=== PATIENT | female | born 1975 | race Two or more races ===

== ENCOUNTER 2024-05-31 08:43 | Inpatient (IN) | payer OTHER ==
[~2024-05-31] VITALS: Ht 167.6 cm; Wt 71.2 kg
--- NOTE | 2024-05-31 08:52 | NUR ---
SE RECIBE PTE FEMENINA ALERTA Y ORIENTADA EN [place] [facility] REFIERE DOLOR ABDOMINAL Y NAUSEAS, PTE CON HERNIA ABDOMINAL. SE MILAN S/V Y SE UBICA.
[2024-05-31] MEDS ORDERED: 0.9 % SODIUM CHLORIDE 1,000 ML IV ONE (09:15)
[2024-05-31] MEDS ORDERED: FAMOtidine 10 MG/ML (4ML VIAL) IV ONE (09:15)
[2024-05-31] MEDS ORDERED: KETOROLAC TROMETHAMINE 60 MG VIAL IM ONE (09:15)
--- NOTE | 2024-05-31 09:17 | NUR ---
ASHISH MARLIN EDUCA A PTE SOBRE TX A RECIBIR EN EL AREA LA MISMA REFIERE ENTENDER. SE REALIZAN MUESTRAS JOSE ORDEN MEDICA Y SE ADMINISTRAN MED NAVEEN CUAL PTE NO PRESENTA REACCION ADVERSA. SE KEVIN PTE PREPARADA PARA ESTUDIO Y RESULTADOS.
[2024-05-31 09:40] LABS: HEMATOCRIT 43.5 % (36.0-45.00); HEMOGLOBIN 14.7 g/dL (12.0-15.00); MEAN CELL VOLUME 89.6 fL (80.00-100.00); MEAN CORPUSCULAR HEMOGLOBIN 30.3 pg (27.00-32.0); MEAN CORPUSCULAR HGB CONC 33.8 g/dl (32.0-36.0); PLATELET COUNT 273 K/uL (150-450); RED BLOOD COUNT 4.85 M/uL (4.00-6.00); RED CELL DISTRIBUTION WIDTH 13.2 % (11.5-14.5)
[2024-05-31 09:49] LABS: INR 0.98; PARTIAL THROMBOPLASTIN TIME 29.9 SECONDS (22.0-34.0); PROTHROMBIN TIME 10.7 SECONDS (9.0-11.5)
[2024-05-31 09:53] LABS: ALBUMIN 3.8 gm/dL (3.4-5.0); BILIRUBIN TOTAL 0.33 mg/dL (0.3-1.2); CALCIUM 9.6 mg/dL (8.5-10.1); CREATININE SERUM 0.73 mg/dL (0.55-1.02); GFR 85.09; GLOBULINA 4.2 G/DL (2.4-3.5); POTASSIUM 4.35 mEq/L (3.5-5.1)
[2024-05-31 10:09] LABS: URINE APPEARANCE Cloudy; URINE BILIRRUBIN Negative (NEGATIVE); URINE BLOOD Negative; URINE COLOR Yellow; URINE GLUCOSE Negative (NEGATIVE); URINE KETONE Negative (NEGATIVE); URINE LEUKOCYTE Small; URINE NITRATE Negative; URINE PROTEIN Trace (NEGATIVE); URINE UROBILINOGEN 0.2 E.U./dl
[2024-05-31 10:14] LABS: URINE BACTERIA 1453.9 uL (0.0-1933); URINE RBC 6.2 uL (0.0-20.8); URINE WBC 146.7 uL (0.0-23.2)
[2024-05-31] MEDS ORDERED: VANCOMYCIN HCL 1,000 MG VIAL IV SCH (12:07)
[2024-05-31] MEDS ORDERED: PIPERACILLIN/TAZOBACTAM SODIUM 3.375 GM VIAL IV ONE (12:15)
[2024-05-31] MEDS ORDERED: CEFAZOLIN SODIUM 1,000 MG VIAL IM ONE (12:15)
--- NOTE | 2024-05-31 15:27 | NUR ---
SE RECIBE PACIENTE DE TURNO ANTERIOR ALERTA Y ORIENTADO EN [place] E[facility], UBICADO EN CATARINO A NIVEL MAS BAJO Y CON BARANDAS ELEVADAS. SE OBSERVA CON BUEN PATRON RESPIRATORIO Y PIEL TIBIA AL TACTO. CANALIZACION PATENTE,KRYSTA DE EDEMA O ERITEMA. RECIBIENDO IV FLUIDS. PACIENTE CONSULTADA CON Y .
[2024-05-31] MEDS ORDERED: 0.9 % SODIUM CHLORIDE 1,000 ML IV SCH (18:00)
[2024-05-31] MEDS ORDERED: MEPERIDINE HCL 25 MG/ML AMPUL IV SCH (18:08)
[2024-05-31] MEDS ORDERED: ENALAPRILAT DIHYDRATE 1.25 MG/ML VIAL IV PRN (18:15)
[2024-05-31] MEDS ORDERED: ACETAMINOPHEN 500 MG GEL..CAP PO PRN (18:15)
[2024-05-31] MEDS ORDERED: ONDANSETRON HCL 4 MG in DEXTROSE 5 % IN WATER 50 ML IV PRN (18:15)
[2024-05-31 19:26] LABS: LDH 156 U/L (84-246); PHOSPHOKINASE CREATININE 48 U/L (26-192)
[2024-05-31] MEDS ORDERED: FAMOTIDINE/PF 20 MG in 0.9 % SODIUM CHLORIDE 8 ML IV PUSH SCH (21:00)
[2024-06-01] MEDS ORDERED: PIPERACILLIN/TAZOBACTAM SODIUM 3.375 GM in 0.9 % SODIUM CHLORIDE 100 ML IV SCH
[2024-06-01 03:36] VITALS: BP 105/66; O2SAT 99
[2024-06-01 07:27] LABS: LDH 137 U/L (84-246); PHOSPHOKINASE CREATININE 35 U/L (26-192)
[2024-06-01 07:30] LABS: ALBUMIN 3.1 gm/dL (3.4-5.0); ALKALINE PHOSPHATASE 115 U/L (50-136); ALT/SGPT 17 U/L (12-78); ANION GAP 9 (10.0-20.0); AST/SGOT 11 U/L (15-37); BILIRUBIN TOTAL 0.26 mg/dL (0.3-1.2); BILIRUBIN,CONJUGATED < 0.10 mg/dL (0.0-0.2); BILIRUBIN,UNCONJUGATED 0.16 mg/dL (0.0-0.6); BLOOD UREA NITROGEN 21 mg/dL (7-18); BUN CREA RATIO 26 (7.0-25.0); CALCIUM 8.5 mg/dL (8.5-10.1); CARBON DIOXIDE 27 mEq/L (21-32); CHLORIDE 112 mmol/L (98-107); CHOL HDL RATIO 2.2 (0-5.0); CHOLESTEROL 119 mg/dL (0-200); CREATININE SERUM 0.81 mg/dL (0.55-1.02); GFR 75.47; GLOBULINA 3.1 G/DL (2.4-3.5); GLUCOSE FASTING 112 mg/dL (65-100); HCG QUANTITATIVE 3 mUI/mL (1-3); HDL 53 mg/dl (40-60); LDL 52 mg/dl (0-130); OSMOLALITY SERUM 291 MOSM/KG (275-295); POTASSIUM 4.15 mEq/L (3.5-5.1); SODIUM 144 mmol/L (136-145); TOTAL PROTEIN 6.2 gm/dL (6.4-8.2); TRIGLYCERIDES 70 mg/dL (0-150); VLDL 14 (0-39)
[2024-06-01 07:40] LABS: URINE APPEARANCE Clear; URINE BILIRRUBIN Negative (NEGATIVE); URINE BLOOD Negative; URINE COLOR Yellow; URINE KETONE Trace (NEGATIVE); URINE LEUKOCYTE Negative; URINE NITRATE Negative; URINE PROTEIN Negative (NEGATIVE); URINE UROBILINOGEN 0.2 E.U./dl
[2024-06-01 07:43] LABS: URINE BACTERIA 22.6 uL (0.0-1933); URINE CAST 1.67 uL (0.0-1.40); URINE EPITHELIAL CELLS 12.5 uL (0.0-38.8); URINE RBC 8.2 uL (0.0-20.8); URINE WBC 4.4 uL (0.0-23.2)
[2024-06-01 07:49] LABS: HEMATOCRIT 40.3 % (36.0-45.00); HEMOGLOBIN 13.9 g/dL (12.0-15.00); MEAN CELL VOLUME 89.5 fL (80.00-100.00); MEAN CORPUSCULAR HEMOGLOBIN 30.8 pg (27.00-32.0); MEAN CORPUSCULAR HGB CONC 34.4 g/dl (32.0-36.0); PLATELET COUNT 240 K/uL (150-450); RED BLOOD COUNT 4.51 M/uL (4.00-6.00); RED CELL DISTRIBUTION WIDTH 13.5 % (11.5-14.5)
[2024-06-01 08:08] LABS: C-REACTIVE PROTEIN 1.79 MG/DL (0.00-0.29)
[2024-06-01] MEDS ORDERED: ENOXAPARIN SODIUM 40 MG/0.4 ML SYRINGE SUBCUTANEO SCH (09:00)
[2024-06-01 09:02] VITALS: BP 140/86
[2024-06-01 09:11] LABS: ERYTHROCYTE SEDIMENTATION RATE 20 mm/hr
[2024-06-01 09:37] LABS: URINE GLUCOSE 100 MG/DL (NEGATIVE)
[2024-06-01 09:38] LABS: URINE CRYSTALS MODERATE /HPF
[2024-06-01 16:46] VITALS: BP 113/72
[2024-06-02 02:38] VITALS: BP 122/77; O2SAT 96
[2024-06-02 11:00] VITALS: BP 135/86; O2SAT 98
[2024-06-02] MEDS ORDERED: PIPERACILLIN/TAZOBACTAM SODIUM 3.375 GM VIAL IV SCH (17:00)
[2024-06-02 18:28] VITALS: BP 128/84; O2SAT 98
[2024-06-02] MEDS ORDERED: fentaNYL CITRATE 50 MCG/ML AMPUL IV PUSH ONE (19:15)
[2024-06-02] MEDS ORDERED: MIDAZOLAM HCL 2 MG/2 ML VIAL IV PUSH ONE (19:15)
[2024-06-03 00:23] VITALS: BP 132/82; O2SAT 95
[2024-06-03] MEDS ORDERED: MEPERIDINE HCL 25 MG/ML AMPUL IV SCH (01:00)
[2024-06-03 05:40] LABS: HEMATOCRIT 40.7 % (36.0-45.00); HEMOGLOBIN 13.7 g/dL (12.0-15.00); MEAN CELL VOLUME 90.4 fL (80.00-100.00); MEAN CORPUSCULAR HEMOGLOBIN 30.4 pg (27.00-32.0); MEAN CORPUSCULAR HGB CONC 33.6 g/dl (32.0-36.0); PLATELET COUNT 152 K/uL (150-450); RED CELL DISTRIBUTION WIDTH 12.9 % (11.5-14.5)
[2024-06-03 09:27] VITALS: BP 134/71; O2SAT 98
[2024-06-03 16:46] VITALS: BP 118/74; O2SAT 98
[2024-06-03 19:40] LABS: ALBUMIN 3.5 gm/dL (3.4-5.0); BILIRUBIN TOTAL 0.27 mg/dL (0.3-1.2); CALCIUM 8.9 mg/dL (8.5-10.1); CREATININE SERUM 0.66 mg/dL (0.55-1.02); GFR 95.59; GLOBULINA 3.4 G/DL (2.4-3.5); POTASSIUM 3.93 mEq/L (3.5-5.1); TOTAL PROTEIN 6.9 gm/dL (6.4-8.2)
[2024-06-03 22:55] VITALS: BP 145/84; O2SAT 95
[2024-06-04 01:29] VITALS: BP 116/73; O2SAT 97
[2024-06-04 09:06] VITALS: BP 133/80
[2024-06-04 17:08] VITALS: BP 130/79; O2SAT 98
[2024-06-05 02:40] VITALS: BP 131/83; O2SAT 95
[2024-06-05 08:37] VITALS: BP 141/82; O2SAT 95
[2024-06-05 12:41] LABS: HEMATOCRIT 43.3 % (36.0-45.00); HEMOGLOBIN 14.4 g/dL (12.0-15.00); MEAN CELL VOLUME 89.1 fL (80.00-100.00); MEAN CORPUSCULAR HEMOGLOBIN 29.7 pg (27.00-32.0); MEAN CORPUSCULAR HGB CONC 33.3 g/dl (32.0-36.0); PLATELET COUNT 257 K/uL (150-450); RED BLOOD COUNT 4.87 M/uL (4.00-6.00); RED CELL DISTRIBUTION WIDTH 12.8 % (11.5-14.5)
[2024-06-05 13:58] LABS: ALBUMIN 3.4 gm/dL (3.4-5.0); BILIRUBIN TOTAL 0.24 mg/dL (0.3-1.2); CREATININE SERUM 0.59 mg/dL (0.55-1.02); GFR 108.79; GLOBULINA 3.4 G/DL (2.4-3.5); POTASSIUM 3.79 mEq/L (3.5-5.1); TOTAL PROTEIN 6.8 gm/dL (6.4-8.2)
[2024-06-05 18:27] VITALS: BP 133/82; O2SAT 97
[2024-06-06 02:37] VITALS: BP 146/85; O2SAT 96
[2024-06-06 08:08] VITALS: BP 140/84; O2SAT 99
[2024-06-06 17:48] VITALS: BP 134/89
== END 2024-06-06 18:31 | DRG 581 ==
LOC: ER 08:45 → MEDI 18:35
PROVIDERS: General Practice; ADMIT Internal Medicine; ATTEND Internal Medicine
PROC: BW21YZZ Computerized Tomography (CT Scan) of Abdomen and Pelvis using Other Contrast (ICD-10-PCS; 2024-05-31)
PROC: 0WBF3ZX Excision of Abdominal Wall, Percutaneous Approach, Diagnostic (ICD-10-PCS; principal; 2024-06-02)
DX: L02.211 Cutaneous abscess of abdominal wall (principal)

== ENCOUNTER 2024-09-08 08:37 | Emergency (ER) | payer OTHER ==
[~2024-09-08] VITALS: Ht 167.6 cm; Wt 71.2 kg
[2024-09-08 10:16] LABS: HEMATOCRIT 45.1 % (36.0-45.00); HEMOGLOBIN 15.3 g/dL (12.0-15.00); MEAN CELL VOLUME 87.3 fL (80.00-100.00); MEAN CORPUSCULAR HEMOGLOBIN 29.6 pg (27.00-32.0); MEAN CORPUSCULAR HGB CONC 33.9 g/dl (32.0-36.0); PLATELET COUNT 258 K/uL (150-450); RED BLOOD COUNT 5.17 M/uL (4.00-6.00); RED CELL DISTRIBUTION WIDTH 13.8 % (11.5-14.5)
[2024-09-08 10:52] LABS: ALBUMIN 3.6 gm/dL (3.4-5.0); BILIRUBIN TOTAL 0.36 mg/dL (0.3-1.2); CALCIUM 9.4 mg/dL (8.5-10.1); CREATININE SERUM 0.74 mg/dL (0.55-1.02); GFR 83.76; POTASSIUM 4.02 mEq/L (3.5-5.1); TOTAL PROTEIN 7.6 gm/dL (6.4-8.2)
[2024-09-08] MEDS ORDERED: ORPHENADRINE CITRATE 30 MG/ML AMPUL IM ONE (14:45)
[2024-09-08] MEDS ORDERED: KETOROLAC TROMETHAMINE 30 MG VIAL IV ONE (14:45)
[2024-09-08] MEDS ORDERED: KETOROLAC TROMETHAMINE 30 MG VIAL ONE (14:57)
[2024-09-08] MEDS ORDERED: ORPHENADRINE CITRATE 30 MG/ML AMPUL ONE (14:57)
[2024-09-08] MEDS ORDERED: NORFLEX100MG PO (16:29)
[2024-09-08] MEDS ORDERED: IBU600 MG PO (16:29)
== END 2024-09-08 16:42 | disposition home or self-care (01) ==
LOC: ER 08:39
PROVIDERS: Preventive Medicine Public Health & General Preventive Medicine
DX: M54.89 Other dorsalgia (principal); R07.89 Other chest pain; R91.1 Solitary pulmonary nodule; Z88.8 Allergy status to other drugs, medicaments and biological substances